=== PATIENT | female | born 1970 | race Two or more races ===

== ENCOUNTER 2024-05-25 10:56 | Emergency (ER) | payer MEDICAID, SELFPAY ==
[2024-05-25 11:10] VITALS: BP 149/90; PULSE 65; RESP 17; TEMP 37; O2SAT 98
[2024-05-25 11:11] VITALS: PULSE 76; RESP 18; O2SAT 98
--- NOTE | 2024-05-25 11:19 | EKG_ITS ---
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
--- NOTE | 2024-05-25 11:22 | XR_ITS ---
Examination: AP chest single view Technique one AP portable upright chest single view Exam date and time: 1242 hrs. Comparison June 22, 2023 Indications: Chest pain dizziness beginning 2 days ago Findings: Normal heart size Minor subsegmental atelectasis left lower lung zone. No pneumonia or pulmonary edema. Impression: No pneumonia or pulmonary edema.
--- NOTE | 2024-05-25 11:23 | EDNOTE_ITS ---
<Statement entered by Monserrat Chou MD - 05/25/24 17:35> As co-signing physician, I was present and available for consult prn. I concur with the plan and care as documented by the midlevel provider. ED Chest Pain RME/HPI General Chief Complaint: Chest Pain Stated Complaint: CHEST WALL PAIN Time Seen by Provider: 05/25/24 11:13 Arrival date/time: 05/25/24 10:56 RME / HPI RME / HPI narrative: 53-year-old female patient came in for evaluation regarding chest wall pain. Onset of symptoms since yesterday as worsening chest wall pain, described as dull ache, severity moderate. Patient denies any cough denies any fever denies any diaphoresis denies any other complaints. Patient told me that she ran out of her diabetes medication for 1 week. Denies any vomiting denies any other complaints no medication was taken prior to ER visit Related Data Previous Rx's ?Medication ?Instructions ?Recorded ibuprofen 600 mg tablet 600 mg PO Q8H PRN fever or p ain 05/28/19 #30 tabs albuterol sulfate 90 mcg/actuation 2 puff inhalation Q ID PRN 04/03/20 aerosol inhaler shortness of breath or wheez ing #18 grams azithromycin 250 mg tablet See Rx Instructions PO .COM PLEX #6 04/03/20 tabs codeine 10 mg-guaifenesin 100 mg/5 5 ml PO Q6H PRN cou gh #118 mL 04/13/20 mL oral liquid (Guaifenesin AC) naproxen 500 mg tablet (Naprosyn) 500 mg PO BID PRN pa in #20 tabs 09/28/20 cyclobenzaprine 10 mg tablet 10 mg PO BID #20 tabs 09/17 ibuprofen 600 mg tablet 600 mg PO TID PRN pain #30 t abs 12/03/21 cephalexin 500 mg capsule 500 mg PO QID #28 caps 08/17 albuterol sulfate 90 mcg/actuation 90 mcg inhalation Q 6H PRN 06/22/23 breath activated powder shortness of breath #1 ea inhaler,sensor (Proair Digihaler) amoxicillin 875 mg-potassium 1 tab PO BID #14 tabs clavulanate 125 mg tablet doxycycline monohydrate 100 mg 100 mg PO BID #14 caps 06/22/23 capsule ibuprofen 800 mg tablet 800 mg PO TID PRN pain #30 t abs 05/25/24 Allergies Allergy/AdvReac Type Severity Reaction Status Date / Time No Known Allergies Allergy Verified 06/22/23 14:59 Review of Systems Review of Systems Narrative Review of Systems: Review of system reviewed and within normal limits except mentioned in HPI ED Exam Narrative Physical exam: VITAL SIGNS: Reviewed. GENERAL APPEARANCE: Alert and interactive, follows commands, no acute distress, HEAD AND FACE: Non-traumatic. ENT: PERRL, pink conjunctivitis, eyelid no trauma, Mucous membrane moist. NECK: Supple, nontender, no nuchal rigidity. CHEST: Left chest wall tenderness, no crepitus, no paradoxical movement, no retractions. LUNGS: Clear, well ventilated, symmetric, no rales, no wheezing, no ronchi, no stridor, good breath sounds bilaterally. HEART: Regular rate, regular rhythm, no murmur, no gallops. ABDOMEN: Soft, positive bowel sounds, nondistended, no guarding, nontender, no rebound, no masses, RECTAL: Deferred. GENITAL: Deferred. NEUROLOGICAL: Gross motor function intact sensory function intact, Appropriate for age. MUSCULOSKELETAL: low back nontender, full range of motion. EXTREMITIES: Nontender, full range of motion. SKIN: Color pink, dry, no rash, no lacerations, no abrasions, no contusions. LYMPHATICS: Deferred. Course Quality Measures none Orders Category Date Time Status EKG (ED ONLY) *Do not use* NOW Care 05/25/24 11:19 Completed EKG (ED Only) Stat Exams 05/25/24 11:19 Draft XR chest 1V Stat Exams 05/25/24 11:22 Completed B-Type Natriuretic Peptide Stat Lab 05/25/24 11:52 Completed CBC Stat Lab 05/25/24 11:52 Completed Comprehensive Metabolic Panel Stat Lab 05/25/24 11:52 Completed Partial Thromboplastin Time Stat Lab 05/25/24 11:52 Completed Troponin I Stat Lab 05/25/24 11:52 Completed Urinalysis, C/S if Indicated Stat Lab 05/25/24 15:44 Completed Acetaminophen Tab [Tylenol ES Tab] Med 05/25/24 11:22 Discontinued 1,000 mg PO X1 ONE Vital Signs Vital signs: Vital Signs Temperature 98.6 F 05/25/24 11:10 Pulse Rate 65 05/25/24 11:10 Respiratory Rate 17 05/25/24 11:10 Blood Pressure 149/90 H 05/25/24 11:10 Pulse Oximetry (%) 98 05/25/24 11:10 Oxygen Delivery Method Room Air 05/25/24 11:10 Chest Pain [facility] Narrative [facility] Narrative:: 53-year-old female patient came in for evaluation regarding chest wall pain. Onset of symptoms since yesterday as worsening chest wall pain, described as dull ache, severity moderate. Patient denies any cough denies any fever denies any diaphoresis denies any other complaints. Patient told me that she ran out of her diabetes medication for 1 week. Denies any vomiting denies any other complaints no medication was taken prior to ER visit EKG showed sinus rhythm, ventricular to 70 bpm, no ST segment elevation depression noted. Laboratory workup including troponin came back normal. I personally reviewed and interpreted the x-ray of this patient. There is no acute abnormalities found, no infiltrates no pneumothorax no hemothorax normal chest x-ray. Review of other structures was without significant abnormal findings also. I additionally reviewed the radiologist report and agree with the interpretation. Her urinalysis is contaminated. Patient appears nontoxic and hemodynamically stable. Patient discharged home and instructed to follow-up with primary care provider in 24 to 48 hours. Instructed to return to the emergency department immediately if worsening of symptoms Patient data External records reviewed:: None Clinical information provided by:: none Social determinants that could affect healthcare access:: none Patient has the following chronic illnesses:: None How is presenting disease/condition affected by chronic disease/condition?: no chronic disease Evaluation data The following diagnostics were reviewed and interpreted by me:: lab results, radiology exam(s) and EKG tracing(s) Lab and/or radiology exams considered but not ordered:: None Interpretation Summary: See results in [facility] Medications / Prescriptions Medications or Prescriptions considered but not ordered:: None Medication administrations:: Medication Administration History Discontinued Medications Acetaminophen (Acetaminophen 500 Mg Tablet) 1,000 mg PO X1 ONE Stop: 05/25/24 11:23 Last Admin: 05/25/24 13:04 Dose: 1,000 mg Documented By: STEVE Tylenol Consultations Consultation(s) initiated? (list below): No Diagnosis Chest Pain Differential Diagnosis: pneumothorax, costochondritis and chest pain Most likely diagnosis given after review of the tests above:: Costochondritis Admission Indicated Admission indicated?: not indicated Admission Request Was there a request for admission?: No Disposition Plan Disposition Plan: Discharge Discharge Attestation Discharge Attestation: The patient and all family members were given an opportunity to ask questions and understood the discharge instructions. Discharge instructions specifically effects, indications for sooner follow up or return to the emergency department, and the expected course of current diagnosis. Patient condition: Stable Discharge Plan Plan Patient Disposition: HOME (Self Care) Disposition Comment: Stable Prescriptions/Referrals Prescriptions/Med Rec: New ibuprofen 800 mg tablet 800 mg PO TID PRN (Reason: pain) Qty: 30 0RF No Action ibuprofen 600 mg tablet 600 mg PO Q8H PRN (Reason: fever or pain) Qty: 30 0RF codeine-guaifenesin [Guaifenesin AC] 10-100 mg/5 mL liquid 5 ml PO Q6H PRN (Reason: cough) Qty: 118 0RF azithromycin 250 mg tablet See Rx Instructions .ROUTE .COMPLEX Qty: 6 0RF Rx Instructions: take 500 mg today (day 1), then 250 mg for 4 days (days 2-5) albuterol sulfate 90 mcg/actuation HFA aerosol inhaler 2 puff inhalation QID PRN (Reason: shortness of breath or wheezing) Qty: 18 0RF naproxen [Naprosyn] 500 mg tablet 500 mg PO BID PRN (Reason: pain) Qty: 20 0RF cyclobenzaprine 10 mg tablet 10 mg PO BID Qty: 20 0RF ibuprofen 600 mg tablet 600 mg PO TID PRN (Reason: pain) Qty: 30 0RF amoxicillin-pot clavulanate 875-125 mg tablet 1 tab PO BID Qty: 14 0RF doxycycline monohydrate 100 mg capsule 100 mg PO BID Qty: 14 0RF Proair Digihaler 90 mcg/actuation aero powdr breath act w/sensor 90 mcg inhalation Q6H PRN (Reason: shortness of breath) Qty: 1 0RF cephalexin 500 mg capsule 500 mg PO QID Qty: 28 0RF Referrals: Gerald Avila MD [Primary Care Provider] - In 1 week Problem List Clinical Impression: Costochondritis Patient/Caregiver Discharge Instructions Discharge Activity: activity as tolerated Education Materials: Costochondritis Additional Instructions: Thank you for the opportunity for serving you today. You are stable for discharged . You are advised to: Follow-up with your PCP in 1 to 2 days Return to ED for worsening of symptoms Increase oral fluids Take medication as prescribed Print Language: Romanian Stand Alone Forms: Dominique Award Info., Patient Portal Info Letter PA/BEAN DUMPER Supervising Physician SONI/ERICK Supervising Physician: MD Colten
[2024-05-25 12:08] LABS: Basophils % (Auto) 0 % (0-2.5); Eosinophils # (Auto) 0.2 Thou/mm3 (0.0-0.5); Eosinophils % (Auto) 3 % (0-10); Hematocrit 38.3 % (36.0-46.0); Hemoglobin 13.6 g/dL (12.0-16.0); Immature Granulocytes % (Auto) 0 % (0-0); Immature Granulocytes Auto 0.02 Thou/mm3 (0.00-0.00); Lymphocytes # (Auto) 2.4 Thou/mm3 (1.0-4.8); Lymphocytes % (Auto) 40 % (10-50); Mean Corpuscular HGB Conc 35.5 g/dl (31.0-37.0); Mean Corpuscular Hemoglobin 28.8 pg (25.0-35.0); Mean Corpuscular Volume 81 fL (80-100); Monocytes # (Auto) 0.3 Thou/mm3 (0.0-0.8); Monocytes % (Auto) 5 % (0-12); Neutrophils # (Auto) 3.1 Thou/mm3 (1.8-7.7); Neutrophils % (Auto) 52 % (37-80); Nucleated Red Blood Cell % 0 /100 WBC (0); Platelet Count 209 Thou/mm3 (140-440); RDW Standard Deviation 36.7 fL (36.4-46.3); Red Blood Count 4.73 Miln/mm3 (4.00-5.20); White Blood Count 5.9 Thou/mm3 (3.6-11.0)
[2024-05-25 12:26] LABS: Partial Thromboplastin Time 25.5 Seconds (22.0-36.0)
[2024-05-25 12:28] LABS: B-Type Natriuretic Peptide 43 pg/mL (0-100)
[2024-05-25 12:29] LABS: Alanine Aminotransferase 39 U/L (10-49); Albumin, Serum 4.2 gm/dL (3.5-5.0); Albumin/Globulin Ratio 1.2 (1.2-2.2); Alkaline Phosphatase 100 U/L (46-116); Anion Gap 9 (7-16); Aspartate Amino Transferase 41 U/L (0-34); BUN/Creatinine Ratio 10 Ratio (12-20); Bilirubin,Total 0.9 mg/dL (0.3-1.2); Blood Urea Nitrogen 6 mg/dL (9-23); Calcium 9.4 mg/dL (8.3-10.6); Calcium (Corrected) 9.4 mg/dL (8.5-10.1); Chloride 109 mMol/L (98-107); Creatinine (Component) 0.6 mg/dL (0.6-1.3); Globulin 3.4 gm/dL (2.3-3.5); Glucose 144 mg/dL (74-106); Osmolality,Calculated 283 (275-295); Potassium 3.5 mMol/L (3.4-5.1); Sodium 142 mMol/L (136-145); Total Protein 7.6 gm/dL (5.7-8.2); Troponin I < 0.002 ng/mL (0.0-0.045); eGFR > 60 See Note
[2024-05-25] MEDS: ACETAMINOPHEN 500 MG TABLET 1000 MG PO (13:04)
[2024-05-25 14:20] VITALS: BP 142/89; PULSE 72; RESP 18; TEMP 37; O2SAT 97
[2024-05-25 15:48] LABS: Collection Type, Urine Clean Catch
[2024-05-25 16:03] LABS: Bacteria,Urine Rare; Bilirubin,Urine Negative (Negative); Blood,Urine Negative (Negative); Clarity,Urine Turbid (Clear/Hazy); Color,Urine Yellow (Lt Yel-Yel); Culture Indicated,Urine Contaminated; Glucose, Urine Trace (Negative); Ketones,Urine Negative (Negative); Leukocyte Esterase,Urine Positive (Negative); Nitrite,Urine Negative (Negative); Protein,Urine 1+ (Neg - Trace); RBC,Urine 3 /hpf (0-3); Specific Gravity,Urine 1.035 (1.001-1.035); Squamous Epithelial Cell,Urine 11 /hpf (0-5); Transitional Epi Cells,Urine 2 /hpf (0-5); WBC,Urine 56 /hpf (0-5)
== END 2024-05-25 17:30 | disposition home or self-care (01) ==
PROVIDERS: Nurse Practitioner Family; Emergency Provider Emergency Medicine; PCP Family Medicine
DX: M94.0 Chondrocostal junction syndrome [Tietze] (principal); E11.9 Type 2 diabetes mellitus without complications
CPT/HCPCS: 36415; 71045; 80053; 81001; 83880; 84484; 85025; 85730; 93005; 99283; A9270

== ENCOUNTER 2024-12-30 00:23 | Emergency (ER) | payer MEDICAID, SELFPAY ==
--- NOTE | 2024-12-30 00:39 | PD.EDCHEST ---
ED Chest Pain RME/HPI General Chief Complaint: Chest Pain Stated Complaint: CHEST PAIN Time Seen by Provider: 12/30/24 00:59 Arrival date/time: 12/30/24 00:23 RME / HPI RME / HPI narrative: See MDM for Dr. Haley's HPI documentation. Related Data Previous Rx's ?Medication ?Instructions ?Recorded ibuprofen 600 mg tablet 600 mg PO Q8H PRN fever or pain 05/28/19 #30 tabs albuterol sulfate 90 mcg/actuation 2 puff inhalation QID PRN 04/03/20 aerosol inhaler shortness of breath or wheezing #18 grams azithromycin 250 mg tablet See Rx Instructions PO .COMPLEX #6 04/03/20 tabs codeine 10 mg-guaifenesin 100 mg/5 5 ml PO Q6H PRN cough #118 mL 04/13/20 mL oral liquid (Guaifenesin AC) naproxen 500 mg tablet (Naprosyn) 500 mg PO BID PRN pain #20 tabs 09/28/20 cyclobenzaprine 10 mg tablet 10 mg PO BID #20 tabs 12/03/21 ibuprofen 600 mg tablet 600 mg PO TID PRN pain #30 tabs 12/03/21 cephalexin 500 mg capsule 500 mg PO QID #28 caps 08/17/22 albuterol sulfate 90 mcg/actuation 90 mcg inhalation Q6H PRN 06/22/23 breath activated powder shortness of breath #1 ea inhaler,sensor (Proair Digihaler) amoxicillin 875 mg-potassium 1 tab PO BID #14 tabs 06/22/23 clavulanate 125 mg tablet doxycycline monohydrate 100 mg 100 mg PO BID #14 caps 06/22/23 capsule ibuprofen 800 mg tablet 800 mg PO TID PRN pain #30 tabs 05/25/24 acetaminophen 300 mg-codeine 30 mg 2 tab PO Q8H PRN pain #20 tabs 12/30/24 tablet ketorolac 10 mg tablet 10 mg PO Q8H PRN pain 5 days #10 12/30/24 tabs ondansetron 4 mg disintegrating 4 mg PO TID PRN nausea and 12/30/24 tablet vomiting 30 days #10 tabs sitagliptin phosphate 50 1 tab PO DAILY #30 tabs 12/30/24 mg-metformin 1,000 mg tablet (Janumet) Allergies Allergy/AdvReac Type Severity Reaction Status Date / Time No Known Allergies Allergy Verified 06/22/23 14:59 Review of Systems Review of Systems Systems Reviewed: All systems reviewed, normal except as documented Past Medical History Past Medical History NEUROLOGIC: Negative Seizures CARDIAC: Positive Hypertension; Negative Cardiac Disorders or Congestive Heart Failure RESPIRATORY: Negative Chronic Obstructive Pulmonary Disease (COPD) or Asthma GENITOURINARY: Negative Renal Disease MUSCULOSKELETAL: Positive Arthritis ENDOCRINE: Negative Diabetes Mellitus Type 1 or Diabetes Mellitus Type 2 HEMATOLOGIC: Negative Sickle Cell Disease OTHER HISTORY: Negative Blood Transfusions, Blood Transfusion Reaction or Anesthesia Reactions Surgical History SURGICAL: Positive Abdominal Surgery and Section Social History SMOKING STATUS: Never smoker SUBSTANCE USE: does not use ED Exam Narrative Physical exam: See MDM for Dr. Haley's physical exam documentation. Course Course Course Narrative: CXR is ordered for determining the etiology of chest pain. Quality Measures none Orders Category Date Time Status Bedside COVID-19 Antigen Test NOW Care 12/30/24 00:59 Completed EKG (ED ONLY) *Do not use* NOW Care 12/30/24 00:50 Completed Saline [Insert IV] NOW Care 12/30/24 00:59 Completed Straight [In and Out Catheter] X1 Care 12/30/24 00:[address] cervical spine wo con Stat Exams 12/30/24 01:[address] chest abdomen pelvis wo Stat Exams 12/30/24 01:[address] head/brain wo con Stat Exams 12/30/24 01:00 Taken EKG (ED Only) Stat Exams 12/30/24 00:50 Ordered US gall bladder Stat Exams 12/30/24 01:01 Taken XR chest 1V portable Stat Exams 12/30/24 01:00 Taken Amylase Stat Lab 12/30/24 02:10 Completed BNP [B-Type Natriuretic Peptide] Stat Lab 12/30/24 02:10 Completed Beta Hydroxybutyrate Stat Lab 12/30/24 02:10 Completed Bilirubin,Direct Stat Lab 12/30/24 02:10 Completed CBC Stat Lab 12/30/24 02:10 Completed CMP [Comprehensive Metabolic Panel] Stat Lab 12/30/24 02:10 Completed CRP [C-Reactive Protein] Stat Lab 12/30/24 02:10 Completed ESR [Sed Rate (ESR)] Stat Lab 12/30/24 02:10 Completed HCG Qualitative,Urine Stat Lab 12/30/24 03:08 Completed Hemoglobin A1C [Glycohemoglobin w (eAG)] Stat Lab 12/30/24 02:10 Completed Influenza A & B Rapid Panel Stat Lab 12/30/24 01:37 Completed Lipase Stat Lab 12/30/24 02:10 Completed Magnesium Stat Lab 12/30/24 02:10 Completed Procalcitonin Stat Lab 12/30/24 02:10 Completed TSH [Thyroid Stimulating Hormone] Stat Lab 12/30/24 02:10 Completed Troponin I Stat Lab 12/30/24 02:10 Completed UA, C/S IF [Urinalysis, C/S if Indicated] Stat Lab 12/30/24 01:15 Completed VBG [Venous Blood Gas] Stat Lab 12/30/24 02:10 Completed Ketorolac Inj [Toradol Inj] Med 12/30/24 02:32 Discontinued 30 mg IVP X1 ONE Morphine* Inj Med 12/30/24 00:59 Discontinued 2 mg IV X1 ONE Morphine* Inj Med 12/30/24 02:32 Discontinued 4 mg IV X1 ONE Ondansetron Inj [Zofran Inj] Med 12/30/24 00:59 Discontinued 4 mg IVP X1 ONE Sodium Chloride 0.9% 1000 ml [Ns] 1,000 ml Med 12/30/24 00:59 Discontinued IV 999 mls/hr Vital Signs Vital signs: Vital Signs Temperature 98.6 F 12/30/24 00:45 Pulse Rate 89 12/30/24 00:45 Respiratory Rate 16 12/30/24 00:45 Blood Pressure 159/92 H 12/30/24 00:45 Pulse Oximetry (%) 96 12/30/24 00:45 Oxygen Delivery Method Room Air 12/30/24 00:45 Chest Pain MDM Narrative MDM Narrative:: This section includes all my notes and documentations, including HPI, PE, and ED course. Ga Haley MD HPI: 54-year-old female here with severe left-sided chest/abdominal pain. Has trouble pinpointing the onset. Has trouble describing the quality and quantity of the pain. Has trouble describing exacerbating and relieving factors. No shortness of breath. No fever or chills. No other complaints. ROS: All negative except as documented in HPI. Physical Exam: General: Alert and oriented. In severe pain. Eyes: Conjunctivae and lids clear. ENT: No nasal congestion. Neck: Supple. Heart: RRR. Lungs: No respiratory distress. Good air movement. No rhonchi, wheezing, rales. Chest: Severe tenderness with palpation of the anterior chest, left of the sternum. Abdomen: Soft and nontender. Normal bowel sounds. No distension. No rebound or guarding. Back: No CVA tenderness. Skin: Warm and dry. Neuro: Alert and oriented X 3. I reviewed all diagnostic test results. My interpretation of the EKG is sinus rhythm with no ST-T changes. My interpretation of the chest x-ray is NAD. My review of the gallbladder US report is NAD. My review of the CT head report is unremarkable. My review of the CT cervical spine report is unremarkable. My review of the CT chest abdomen pelvis report is unremarkable. Blood/urine tests unremarkable except Glu 264. COVID/influenza negative. At this point, diagnoses include: Chest wall pain Poorly controlled diabetes mellitus Treatment here included: IV fluid Morphine 2 mg IV Zofran 4 mg IV Toradol 30 mg IV Morphine 4 mg IV Significant improvement noted. Recommended more outpatient care. Based on my best medical judgment, made decision no further evaluation or treatment indicated at this time. Patient understands and agrees to the discharge instructions customized and printed, see below. Discharge instructions from Dr. Haley: 1. After extensive evaluation, there is no life-threatening condition. Such as heart attack or pulmonary embolism (blood clots in your lungs) or pneumothorax (collapsed lung). 2. Your pain is originating from the chest wall and not from an internal organ. The chest wall has many joints and muscles between the ribs, so sprains and strains are common. 3. Apply ice or heat if helpful. Toradol and Tylenol with codeine for pain. Zofran for nausea/vomiting. 4. Take Janumet as prescribed for diabetes. To prevent serious and potentially fatal complications. 5. See a private doctor on 01/01/2025 for recheck. Ask to review all test results and official radiology reports, to make sure you receive all necessary follow-ups and monitoring. To make sure there is no serious underlying heart condition, ask to help you get more tests for your heart that cannot be done here in the ER. Such as Holter Monitor (cardiac monitoring at home from a day to even a month), heart stress test (on treadmill or with medication), echocardiogram (imaging of your heart structures), heart catherization (checking for blockages in your heart arteries), and a referral to see a Mental Health Aides Teacher. To make sure there is no serious intra-abdominal condition, ask for help with more investigation not available here in the ER. Such as EGD or scoping the stomach, colonoscopy or scoping the colon, and referral to see director of audiology. Ask for help with good management of your diabetes. 6. Seek immediate medical care with worsening or with any concerns. Ga Haley MD Patient data External records reviewed:: [facility] previous records (Per chart review, patient was seen here on 05/25/24 for costochondritis.) Clinical information provided by:: patient Social determinants that could affect healthcare access:: none Patient has the following chronic illnesses:: DM, HTN How is presenting disease/condition affected by chronic disease/condition?: uneffected by Evaluation data The following diagnostics were reviewed and interpreted by me:: lab results, radiology exam(s) and EKG tracing(s) (My interpretation of the EKG: NSR (90 bpm) with no ST-T changes. Ga Haley MD) Lab and/or radiology exams considered but not ordered:: none Interpretation Summary: I reviewed all diagnostic test results. My interpretation of the EKG is sinus rhythm with no ST-T changes. My interpretation of the chest x-ray is NAD. My review of the gallbladder US report is NAD. My review of the CT head report is unremarkable. My review of the CT cervical spine report is unremarkable. My review of the CT chest abdomen pelvis report is unremarkable. Blood/urine tests unremarkable except Glu 264. COVID/influenza negative. Medications / Prescriptions Medications or Prescriptions considered but not ordered:: none Medication administrations:: Medication Administration History Discontinued Medications Sodium Chloride (Ns) 1,000 mls @ 999 mls/hr IV .Q1H1M ONE Stop: 12/30/24 01:59 Last Infusion: 12/30/24 03:35 Dose: Infused Documented By: Admin: 12/30/24 02:12 Dose: 999 mls/hr Documented By: HARMAN Ketorolac Tromethamine (Ketorolac Inj 30 Mg/Ml Vial) 30 mg IVP X1 ONE Stop: 12/30/24 02:33 Last Admin: 12/30/24 03:35 Dose: 30 mg Documented By: AM Morphine Sulfate (Morphine Sulf Inj 4 Mg/Ml Vial) 2 mg IV X1 ONE Stop: 12/30/24 01:00 Last Admin: 12/30/24 02:13 Dose: 2 mg Documented By: HARMAN Morphine Sulfate (Morphine Sulf Inj 4 Mg/Ml Vial) 4 mg IV X1 ONE Stop: 12/30/24 02:33 Last Admin: 12/30/24 02:52 Dose: 4 mg Documented By: HARMAN Ondansetron HCl (Ondansetron Inj 2 Mg/Ml Inj 2 Ml) 4 mg IVP X1 ONE; Protocol Stop: 12/30/24 01:00 Last Admin: 12/30/24 02:13 Dose: 4 mg Documented By: HARMAN Treatment here included: IV fluid Morphine 2 mg IV Zofran 4 mg IV Toradol 30 mg IV Morphine 4 mg IV Consultations Consultation(s) initiated? (list below): No Diagnosis Chest Pain Differential Diagnosis: fracture of rib, pneumothorax, stable angina, unstable angina pectoris, atypical chest pain, st elevation myocardial infarction, costochondritis and biliary colic Most likely diagnosis given after review of the tests above:: Chest wall pain Poorly controlled diabetes mellitus Admission Indicated Admission indicated?: not indicated Explain why admission is indicated or not indicated:: With significant improvement and no condition needing emergent intervention, there was no indication for admission. Admission Request Was there a request for admission?: No Disposition Plan Disposition Plan: Discharge Discharge Attestation Discharge Attestation: The patient and all family members were given an opportunity to ask questions and understood the discharge instructions. Discharge instructions specifically effects, indications for sooner follow up or return to the emergency department, and the expected course of current diagnosis. Patient condition: Stable Discharge Plan Plan Patient Disposition: HOME (Self Care) Prescriptions/Referrals Prescriptions/Med Rec: New acetaminophen-codeine 300-30 mg tablet 2 tab PO Q8H MDD 6 PRN (Reason: pain) Qty: 20 0RF ketorolac 10 mg tablet 10 mg PO Q8H PRN (Reason: pain) 5 Days Qty: 10 0RF ondansetron 4 mg tablet,disintegrating 4 mg PO TID PRN (Reason: nausea and vomiting) 30 Days Qty: 10 0RF Janumet 50-1,000 mg tablet 1 tab PO DAILY Qty: 30 1RF No Action ibuprofen 600 mg tablet 600 mg PO Q8H PRN (Reason: fever or pain) Qty: 30 0RF codeine-guaifenesin [Guaifenesin AC] 10-100 mg/5 mL liquid 5 ml PO Q6H PRN (Reason: cough) Qty: 118 0RF azithromycin 250 mg tablet See Rx Instructions .ROUTE .COMPLEX Qty: 6 0RF Rx Instructions: take 500 mg today (day 1), then 250 mg for 4 days (days 2-5) albuterol sulfate 90 mcg/actuation HFA aerosol inhaler 2 puff inhalation QID PRN (Reason: shortness of breath or wheezing) Qty: 18 0RF naproxen [Naprosyn] 500 mg tablet 500 mg PO BID PRN (Reason: pain) Qty: 20 0RF cyclobenzaprine 10 mg tablet 10 mg PO BID Qty: 20 0RF ibuprofen 600 mg tablet 600 mg PO TID PRN (Reason: pain) Qty: 30 0RF amoxicillin-pot clavulanate 875-125 mg tablet 1 tab PO BID Qty: 14 0RF doxycycline monohydrate 100 mg capsule 100 mg PO BID Qty: 14 0RF Proair Digihaler 90 mcg/actuation aero powdr breath act w/sensor 90 mcg inhalation Q6H PRN (Reason: shortness of breath) Qty: 1 0RF cephalexin 500 mg capsule 500 mg PO QID Qty: 28 0RF ibuprofen 800 mg tablet 800 mg PO TID PRN (Reason: pain) Qty: 30 0RF Referrals: Gerald Avila MD [Primary Care Provider, Family Practice] - In 1 week Problem List Clinical Impression: Chest wall pain, Poorly controlled diabetes mellitus Patient/Caregiver Discharge Instructions Discharge Activity: activity as tolerated Education Materials: ED Diabetes- Overview, ED Chest Wall Strain (Child) Additional Instructions: Discharge instructions from Dr. Haley: 1. After extensive evaluation, there is no life-threatening condition.? Such as heart attack or pulmonary embolism (blood clots in your lungs) or pneumothorax (collapsed lung). 2. Your pain is originating from the chest wall and not from an internal organ.? The chest wall has many joints and muscles between the ribs, so sprains and strains are common.?? 3. Apply ice or heat if helpful.? Toradol and Tylenol with codeine for pain. Zofran for nausea/vomiting. 4. Take Janumet as prescribed for diabetes. To prevent serious and potentially fatal complications. 5. See a private doctor on 01/01/2025 for recheck. Ask to review all test results and official radiology reports, to make sure you receive all necessary follow-ups and monitoring. To make sure there is no serious underlying heart condition, ask to help you get more tests for your heart that cannot be done here in the ER.? Such as Holter Monitor (cardiac monitoring at home from a day to even a month), heart stress test (on treadmill or with medication), echocardiogram (imaging of your heart structures), heart catherization (checking for blockages in your heart arteries), and a referral to see a Mental Health Aides Teacher.? To make sure there is no serious intra-abdominal condition, ask for help with more investigation not available here in the ER. Such as EGD or scoping the stomach, colonoscopy or scoping the colon, and referral to see director of audiology. Ask for help with good management of your diabetes. 6. Seek immediate medical care with worsening or with any concerns.?? Instrucciones de bruce del Dr. Haley: 1. Tras wilmer evaluaci?n exhaustiva, no se detecta ninguna afecci?n que ponga en peligro chavira vanessa, margy un infarto, wilmer embolia pulmonar (co?gulos de paramjit en los pulmones) o un neumot?rax (colapso pulmonar). 2. El dolor se origina en la pared tor?cica y no en un ?rgano interno. La pared tor?cica tiene muchas articulaciones y m?sculos entre las costillas, por lo que los esguinces y las distensiones son frecuentes. 3. Aplique hielo o calor si le resulta ?til. Toradol y Tylenol con code?na para el dolor. Zofran para las n?useas y los v?mitos. 4. [place] Janumet seg?n lo prescrito para la diabetes. Para prevenir complicaciones graves y potencialmente mortales. 5. Consulte a un m?dico particular el 07/07/2024 para wilmer revisi?n. Solicite revisar todos los resultados de las pruebas y los informes radiol?gicos oficiales para asegurarse de recibir el seguimiento y la monitorizaci?n necesarios. Para descartar cualquier afecci?n card?bina subyacente grave, solicite ayuda para realizarse m?s pruebas card?acas que no se pueden realizar en urgencias. Por ejemplo, un monitor Holter (monitorizaci?n card?bina en casa leonel un d?a o incluso un mes), wilmer prueba de esfuerzo card?aco (en cinta rodante o con medicaci?n), un ecocardiograma (im?genes de las estructuras card?acas), un cateterismo card?aco (para detectar obstrucciones en las arterias coronarias) y wilmer derivaci?n a un cardi?logo. Para descartar cualquier afecci?n intraabdominal grave, solicite ayuda para realizar m?s pruebas diagn?sticas que no est?n disponibles en urgencias. Por ejemplo, wilmer endoscopia digestiva bruce (KASSY) o wilmer colonoscopia (EC) y wilmer derivaci?n a un gastroenter?logo. Solicite ayuda para controlar adecuadamente chavira diabetes. 6. Busque atenci?n m?dica inmediata si empeora o si tiene alguna inquietud. Print Language: Tamazight Stand Alone Forms: Dominique Award Info., Patient Portal Info Letter
[2024-12-30 00:45] VITALS: BP 159/92; PULSE 89; RESP 16; TEMP 37; O2SAT 96
--- NOTE | 2024-12-30 00:50 | EKG_ITS ---
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
--- NOTE | 2024-12-30 01:00 | XR_ITS ---
Examination: CT brain head without contrast. 2-D sagittal coronal reconstructions Date and time of exam: December 30, 2024, 0052 hours INDICATIONS: Onset altered mental status today CTDI: vol (mGy): 50.20 DLP: (mGycm): 1003 Technique: Multiple CT axial sections of the brain have been obtained, 5 mm slice thickness. Contrast has not been administered. 2-D sagittal, coronal reconstructions have been obtained Low dose protocols were performed. One or more of the following dose reduction techniques were used; automated exposure control, adjustment of the mA and/or KV according to patient size, use of iterative reconstruction technique. Findings: No significant ventricular enlargement. Intra-axial or extra-axial hemorrhage density is not seen. No mass effect or midline shift Basal cisterns are not remarkable. Fourth ventricle is midline. Cranial vault intact. Impression: Negative for acute hemorrhage, mass effect or midline shift Advise clinical correlation and follow-up accordingly
--- NOTE | 2024-12-30 01:00 | XR_ITS ---
EXAMINATION: PA chest single view Technique when upright PA chest single view Date and time: December 30, 2024, 0101 hours, comparison May 25, 2024 INDICATIONS: Shortness of breath today. FINDINGS: Normal heart size. Lungs are clear. The osseous structures are intact. IMPRESSION: No active disease
--- NOTE | 2024-12-30 01:00 | XR_ITS ---
Examination: CT cervical spine without contrast 2-D sagittal reconstructions 2-D coronal reconstructions 3-D reconstructions. Exam date and time: December 30, 2024, 0122 hours INDICATIONS: Injury to the neck today, neck pain CTDI:vol (mGy) 17.96 DLP: (mGycm) 407 Technique: Multiple 2 mm axial sections of the cervical spine have been obtained. The coronal and sagittal reconstructions have been obtained. 3-D reconstructions have been obtained. Low dose protocols were performed. One or more of the following dose reduction techniques were used; automated exposure control, adjustment of the mA and/or KV according to patient size, use of iterative reconstruction technique. Findings: Axial sections demonstrate intact base of the skull. C1 exhibit satisfactory relationship to the odontoid. No acute cervical vertebral body fracture seen. Alignment posterior spinous processes satisfactory. Impression: No acute cervical fracture.
--- NOTE | 2024-12-30 01:01 | XR_ITS ---
Examination: Abdomen sonogram, Limited Date and time of exam: December 30, 2024, 0140 hours INDICATIONS: Upper abdominal pain epigastric pain beginning 2 days ago. Technique: Real-time dhillon scale transabdominal sonographic images of the upper abdomen obtained. Findings: Absent gallbladder Normal common bile duct 0.2 cm Pancreatic head 2.7 cm Liver 18.5 cm fatty infiltration irregular contour no focal liver lesions Normal hepatopetal portal venous flow Patent IVC IMPRESSION: Absent gallbladder Normal common bile duct. Moderate hepatomegaly suspect primary pelvis cellular disease
--- NOTE | 2024-12-30 01:01 | XR_ITS ---
Examination: CT chest, without intravenous contrast. CT abdomen, without intravenous contrast. CT pelvis, without intravenous contrast. 2-D sagittal and coronal reconstructions. 3-D reconstructions. Date and time of exam: December 30, 2024, 0126 hours COMPARISON: August 16, 2022 INDICATIONS: Left chest pain abdomen pain onset today. CTDI vol (mgy) 16.11 DLP (MGycm) 1218 Technique: Multiple CT images, 3.0 mm slice thickness, obtained chest, abdomen, pelvis, with the high-resolution 64 slice scanner.. Sagittal and coronal 2-D reconstructions are obtained. 3-D reconstructions Low dose protocols were performed. One or more of the following dose reduction techniques were used; automated exposure control, adjustment of the mA and/or KV according to patient size, use of iterative reconstruction technique. Findings: No thoracic aortic aneurysm dilatation. Pulmonary artery segments are not enlarged. No paratracheal tracheobronchial or bronchopulmonary adenopathy. Suspicious for 4 mm pulmonary nodule posterior right lung image 152 No pneumonia or pulmonary edema No visualized liver or splenic lesion Absent gallbladder No common bile duct stones No pancreatic or adrenal mass No renal or ureteral calculi, no hydronephrosis Aorta normal size Absent appendix No bowel obstruction or diverticulitis No pelvic mass Contracted urinary bladder with urinary bladder wall thickening IMPRESSION: No mediastinal lymphadenopathy. Recommend 6-month follow-up CT chest without contrast to document stability of 4 mm pulm nodule posterior right lung No pneumonia or pulmonary edema No acute process in the abdomen or pelvis Mild urinary bladder wall thickening, differential would include cystitis Moderate degenerative disc disease L5-S1
[2024-12-30 01:21] LABS: Collection Type, Urine Clean Catch; Squamous Epithelial Cell,Urine 0 /hpf (0-5)
[2024-12-30 01:27] LABS: Bilirubin,Urine Negative (Negative); Blood,Urine Negative (Negative); Clarity,Urine Clear (Clear/Hazy); Color,Urine Colorless (Lt Yel-Yel); Culture Indicated,Urine Not Indicated; Glucose, Urine 4+ (Negative); Ketones,Urine Negative (Negative); Leukocyte Esterase,Urine Negative (Negative); Nitrite,Urine Negative (Negative); PH,Urine 7.0 (5.0-7.0); Protein,Urine Negative (Neg - Trace); RBC,Urine < 1 /hpf (0-3); Specific Gravity,Urine 1.007 (1.001-1.035); Urobilinogen,Urine Negative mg/dL (0.0-1.0); WBC,Urine 1 /hpf (0-5)
--- NOTE | 2024-12-30 01:32 | PRELIM_ITS ---
CT scan of the head without intravenous contrast (axial sections with sagittal and coronal reformats). December 30, 2024 0121 hours Clinical History: AMS Comparison: None Findings: There is no intracranial hemorrhage, extra-axial collection, mass, mass-effect or midline shift. There is good dhillon-white differentiation. There is no CT evidence of acute large vascular territorial infarct. Ventricles are not enlarged or effaced. Visualized paranasal sinuses and tympanomastoid cavities are clear. The bony calvarium is intact. Impression: No intracranial hemorrhage, mass-effect or midline shift. No CT evidence of acute large vascular territorial infarct. Report Electronically Signed By: Quincy Martinez 12/30/2024 1:31:40 AM [EST]
--- NOTE | 2024-12-30 01:33 | PRELIM_ITS ---
CT scan of the cervical spine without intravenous contrast (axial sections with sagittal and coronal reformats). December 30, 2024 0123 hours Clinical History: Pain with obvious injury Comparison: None Findings: There is no fracture, traumatic subluxation or other acute osseous abnormality of the cervical spine. There is straightening of the cervical spine curvature with loss of normal cervical lordosis. There is no prevertebral soft tissue swelling. Impression: No acute osseous abnormality of the cervical spine. Straightening of the cervical spine may indicate muscle spasm. Report Electronically Signed By: Quincy Martinez 12/30/2024 1:33:13 AM [EST]
[2024-12-30 02:08] VITALS: BMI 42.7
[2024-12-30] MEDS: SODIUM CHLORIDE 0.9% 1000 ML 1,000 ML 999 ML IV (02:12)
[2024-12-30] MEDS: MORPHINE SULF INJ 4 MG/ML VIAL 2 MG IV (02:13)
[2024-12-30] MEDS: ONDANSETRON INJ 2 MG/ML INJ 2 ML 4 MG IVP (02:13)
[2024-12-30 02:22] LABS: Base Excess, Venous 0 (-3-3); O2 Saturation, Venous 87 % (96-97); PCO2, Venous 42 mmHg (36-56); PO2, Venous 51 mmHg (15-58); pH, Venous 7.39 (7.33-7.66)
[2024-12-30 02:23] LABS: Basophils # (Auto) 0.0 Thou/mm3 (0.0-0.2); Basophils % (Auto) 0 % (0-2.5); Eosinophils # (Auto) 0.1 Thou/mm3 (0.0-0.5); Eosinophils % (Auto) 2 % (0-10); Hematocrit 38.0 % (36.0-46.0); Hemoglobin 12.9 g/dL (12.0-16.0); Immature Granulocytes Auto 0.03 Thou/mm3 (0.00-0.00); Lymphocytes # (Auto) 1.4 Thou/mm3 (1.0-4.8); Lymphocytes % (Auto) 19 % (10-50); Mean Corpuscular HGB Conc 33.9 g/dl (31.0-37.0); Mean Corpuscular Hemoglobin 29.2 pg (25.0-35.0); Mean Corpuscular Volume 86 fL (80-100); Monocytes # (Auto) 0.3 Thou/mm3 (0.0-0.8); Monocytes % (Auto) 4 % (0-12); Neutrophils # (Auto) 5.4 Thou/mm3 (1.8-7.7); Neutrophils % (Auto) 74 % (37-80); Nucleated Red Blood Cell # 0.00 Thou/mm3 (0.00-0.00); Nucleated Red Blood Cell % 0 /100 WBC (0); Platelet Count 206 Thou/mm3 (140-440); RDW Standard Deviation 38.7 fL (36.4-46.3); Red Blood Count 4.42 Miln/mm3 (4.00-5.20); White Blood Count 7.3 Thou/mm3 (3.6-11.0)
[2024-12-30 02:24] LABS: Beta Hydroxybutyrate 0.0 mmol/L (<0.6)
--- NOTE | 2024-12-30 02:24 | PRELIM_ITS ---
CT scan of the chest, abdomen, and pelvis without intravenous contrast (axial sections with sagittal and coronal reformats) December 30, 2024 01:25 hours Clinical History: Left chest pain and abdominal pain Comparison: No prior study is available for comparison mentioned Findings: There is dependent subsegmental atelectasis in the lungs. There is no pleural effusion or pneumothorax. The thoracic aorta demonstrates atheromatous calcification without evidence of aneurysm. Coronary artery calcification is noted. There are a few prominent mediastinal lymph nodes. There is mild card iomegaly. There is no pericardial effusion. Fatty infiltration of the liver is noted. The gallbladder is surgically absent. The spleen, pancreas, adrenals, and kidneys are unremarkable on this noncontrast study. No evidence of bowel obstruction. The appendix is not visualized and may be surgically absent. The urinary bladder is incompletely distended with apparent wall thickening. The uterus is unremarkable. Tubal ligation clips are noted in the pelvis. There is no free fluid or free air. There are pelvic phleboliths. There is degenerative change in the spine. Impression: No pericardial or pleural effusion. No pneumothorax. Possible cystitis. Recommend clinical and laboratory correlation. Other findings as described above. Report Electronically Signed By: Quincy Martinez 12/30/2024 2:23:38 AM [EST]
[2024-12-30 02:34] LABS: Glucose Estimated Average 180 mg/dL (80-131); Hemoglobin A1C 7.9 % Hgb (4.8-6.0)
[2024-12-30 02:36] LABS: Sed Rate (ESR) 43 mm/hr (0-30)
[2024-12-30 02:41] LABS: Influenza A Ag Negative; Influenza B Ag Negative
[2024-12-30 02:42] LABS: B-Type Natriuretic Peptide 21 pg/mL (0-100)
[2024-12-30 02:48] LABS: Alanine Aminotransferase 26 U/L (10-49); Albumin, Serum 4.4 gm/dL (3.5-5.0); Albumin/Globulin Ratio 1.6 (1.2-2.2); Alkaline Phosphatase 118 U/L (46-116); Amylase 77 U/L (30-118); Anion Gap 9 (7-16); Aspartate Amino Transferase 21 U/L (0-34); BUN/Creatinine Ratio 15 Ratio (12-20); Bilirubin,Direct 0.1 mg/dL (0.0-0.3); Bilirubin,Total 0.5 mg/dL (0.3-1.2); Blood Urea Nitrogen 12 mg/dL (9-23); C-Reactive Protein 1.0 mg/dL (0.0-0.9); Calcium 9.3 mg/dL (8.3-10.6); Calcium (Corrected) 9.3 mg/dL (8.5-10.1); Carbon Dioxide 25.3 mMol/L (20.0-31.0); Chloride 105 mMol/L (98-107); Creatinine (Component) 0.8 mg/dL (0.6-1.3); Estimated Creatinine Clearance 85.1 mL/min (>60); Globulin 2.8 gm/dL (2.3-3.5); Glucose 264 mg/dL (74-106); Lipase 43 U/L (12-53); Magnesium 1.8 mg/dL (1.6-2.6); Osmolality,Calculated 286 (275-295); Potassium 4.1 mMol/L (3.4-5.1); Procalcitonin 0.05 ng/ml (0.0-0.49); Sodium 139 mMol/L (136-145); Thyroid Stimulating Hormone 0.64 uIU/mL (0.55-4.78); Total Protein 7.2 gm/dL (5.7-8.2); Troponin I < 0.002 ng/mL (0.0-0.045); eGFR > 60 See Note
[2024-12-30] MEDS: MORPHINE SULF INJ 4 MG/ML VIAL IV (02:52)
[2024-12-30 03:16] LABS: HCG Qualitative,Urine Negative
[2024-12-30] MEDS: KETOROLAC INJ 30 MG/ML VIAL IVP (03:35)
[2024-12-30 03:56] VITALS: BP 143/83; PULSE 79; RESP 16; TEMP 37.1; O2SAT 95
== END 2024-12-30 04:08 | disposition home or self-care (01) ==
PROVIDERS: Emergency Provider Emergency Medicine; PCP Family Medicine
DX: R07.89 Other chest pain (principal); E11.65 Type 2 diabetes mellitus with hyperglycemia
CPT/HCPCS: 36415; 70450; 71045; 71250; 72125; 74176; 76705; 80053; 81001; 81025; 82010; 82150; 82248; 82803; 83036; 83690; 83735; 83880; 84145; 84443; 84484; 85025; 85652; 86140; 87502; 87635; 93005; 96361; 96374; 96375; 99284; J1885; J2270; J2405; J7030

== ENCOUNTER 2025-02-07 07:29 | Emergency (ER) | payer MEDICAID, SELFPAY ==
--- NOTE | 2025-02-07 07:36 | XR_ITS ---
Examination: CT abdomen and pelvis without contrast. Coronal 3-D reconstructions. Sagittal 2-D reconstructions. Date and time of exam: 02/07/2025 at 9:11 a.m. CTDI: vol (mGy): 11 DLP: (mGycm): 630 Comparison study on 12/30/2024 CLINICAL INDICATION: Generalized abdominal pain with nausea and vomiting for 1 day Technique: Axial images of the abdomen have been obtained, 3 mm slice thickness Intravenous contrast material has not been administered. Low dose protocols were performed. One or more of the following dose reduction techniques were used; automated exposure control, adjustment of the mA and/or KV according to patient size, use of iterative reconstruction technique. Findings: In the mid dorsal and lumbosacral spine, there is a vertebral hemangioma measuring 1.9 cm in diameter in the body of L1. This is an insignificant benign bone tumor. Other than moderate degenerative disc disease at L5-S1 the radiographs of the lumbosacral spine are normal, there is minimal DJD in the right hip joint, otherwise the bones appear all right In the lower lungs there is significant cardiomegaly and there is mild coronary artery calcification noted on the left there is a 4 mm diameter noncalcified nodule along the posterior pleural margin of the right lower lobe, this is identical to the area seen on the prior CT of 12/30/2024 There is moderately significant generalized enlargement of the liver with mild but definite decreased density in the liver consistent with fatty infiltration. No focal liver lesions are seen. Surgical clips are seen in the gallbladder fossa, from cholecystectomy. Surgical clips are also seen in the region of the appendix and there is surgical clips indicating bilateral tubal ligation in the pelvis. The appearance of the pancreas and adrenal glands is normal along with the spleen. Both kidneys appear normal, no hydronephrosis or calculi are seen. There is a retroaortic left renal vein, a variation of normal anatomy the retroperitoneum otherwise has a normal CT appearance. All loops of small bowel appear normal. The loops of colon likewise all appear normal with a few possible small diverticuli in the sigmoid. IMPRESSION: 1. There is a 4 mm noncalcified nodule in the posterior base of the right lower lobe unchanged from the previous CT about 3 weeks ago. I would correlate this with the patient's smoking history, if the patient is not a cigarette smoker then the chances of this representing a very tiny early neoplasm are very remote. 2. Nonetheless, I do recommend a follow-up chest CT with attention to this tiny nodule in the right lower lobe in 1 year just to confirm it remains stable in size 3 prominent enlargement of the liver, mild fatty infiltration. 4. Moderately prominent cardiomegaly and left coronary artery calcification 5: Study otherwise normal, see above, and there is very mild early DJD in the right hip
--- NOTE | 2025-02-07 07:36 | EKG_ITS ---
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
[2025-02-07 07:45] VITALS: BP 144/89; PULSE 79; RESP 18; TEMP 37.1; O2SAT 96
--- NOTE | 2025-02-07 07:46 | EDNOTE_ITS ---
ED Abdominal Pain RME/HPI General Chief Complaint: Abdominal Pain Stated complaint: ABDOMINAL PAIN NO BM SINCE YESTERDAY Time seen by provider: 02/07/25 07:32 Arrival date/time: 02/07/25 07:29 RME / HPI RME / HPI narrative: 54-year-old female with past medical history of diabetes, appendectomy, cholecystectomy, who was told by her doctor that she might have cancer after a stool test presents to the ER complaining of nausea and diarrhea which began yesterday in the afternoon. Patient was scheduled for a GI appointment today however her pain was so bad that she came to the ER. Patient states she had antibiotics in the past 6 months but is unsure what kind. Denies any blood in her stool. Related Data Previous Rx's ?Medication ?Instructions ?Recorded ibuprofen 600 mg tablet 600 mg PO Q8H PRN fever or p ain 05/28/19 #30 tabs albuterol sulfate 90 mcg/actuation 2 puff inhalation Q ID PRN 04/03/20 aerosol inhaler shortness of breath or wheez ing #18 grams azithromycin 250 mg tablet See Rx Instructions PO .COM PLEX #6 04/03/20 tabs codeine 10 mg-guaifenesin 100 mg/5 5 ml PO Q6H PRN cou gh #118 mL 04/13/20 mL oral liquid (Guaifenesin AC) naproxen 500 mg tablet (Naprosyn) 500 mg PO BID PRN pa in #20 tabs 09/28/20 cyclobenzaprine 10 mg tablet 10 mg PO BID #20 tabs 09/17 ibuprofen 600 mg tablet 600 mg PO TID PRN pain #30 t abs 12/03/21 cephalexin 500 mg capsule 500 mg PO QID #28 caps 08/17 albuterol sulfate 90 mcg/actuation 90 mcg inhalation Q 6H PRN 06/22/23 breath activated powder shortness of breath #1 ea inhaler,sensor (Proair Digihaler) amoxicillin 875 mg-potassium 1 tab PO BID #14 tabs clavulanate 125 mg tablet doxycycline monohydrate 100 mg 100 mg PO BID #14 caps 06/22/23 capsule ibuprofen 800 mg tablet 800 mg PO TID PRN pain #30 t abs 05/25/24 acetaminophen 300 mg-codeine 30 mg 2 tab PO Q8H PRN pa in #20 tabs 12/30/24 tablet sitagliptin phosphate 50 1 tab PO DAILY #30 tabs 11/0 /25 mg-metformin 1,000 mg tablet (Janumet) ondansetron 4 mg disintegrating 4 mg PO Q8H PRN nausea and 02/07/25 tablet vomiting #12 tabs ondansetron 4 mg disintegrating 4 mg PO Q8H PRN nausea and 02/07/25 tablet vomiting #12 tabs pantoprazole 40 mg tablet,delayed 40 mg PO QDAY #30 ta bs 02/07/25 release (Protonix) Allergies Allergy/AdvReac Type Severity Reaction Status Date / Time No Known Allergies Allergy Verified 02/07/25 07:30 ED Exam Narrative Physical exam: Constitutional: Patient alert and oriented. Well appearing. No acute distress. Not toxic appearing. Head: Normocephalic, atraumatic. Eyes: Periorbital regions bilaterally normal to inspection. Conjunctiva clear bilaterally. Sclera anicteric bilaterally. Pupils equal, round, reactive to light bilaterally. Extraocular movements intact bilaterally. Mouth/Throat: Mucous membranes moist. No stridor or muffled voice. No trismus. Handling secretions without difficulty. Airway widely patent. Neck: Supple. Trachea midline. No JVD. No nuchal rigidity. Normal range of motion. Respiratory: Normal effort. No accessory muscle use or respiratory distress. Lungs clear to auscultation bilaterally without rhonchi, wheezes, or crackles. Cardiovascular: RRR. Normal S1/S2. No murmurs or rubs. Radial pulses intact bilaterally. Abdomen: Soft. Non-distended. Positive periumbilical tenderness. No pulsatile mass. No guarding or rebound. Negative Fisher?s sign. Negative McBurney?s point tenderness. Negative Rovsing?s. Back: No midline tenderness or step-offs. No CVA tenderness to palpation bilaterally. Upper Extremities: No gross deformities. Lower Extremities: No gross deformities. No edema or calf tenderness. Neuro: Speech normal. No gross motor or sensory deficits to upper or lower extremities bilaterally. GCS 15. CN II?XII grossly intact. Skin: Warm, dry, normal color. Psych: Normal affect. Cooperative. Normal insight. Course Quality Measures none Orders Category Date Time Status EKG (ED ONLY) *Do not use* NOW Care 02/07/25 07:37 Completed Insert IV NOW Care 02/07/25 16:17 Active NPO NOW Care 02/07/25 07:36 Active Diet NPO (NOW) Diet 02/07/25 07:[address] abdomen pelvis wo con Stat Exams 02/07/25 07:36 Completed EKG (ED Only) Stat Exams 02/07/25 07:36 Draft XR chest 1V Stat Exams 02/07/25 07:48 Completed CBC Stat Lab 02/07/25 08:10 Completed CMP [Comprehensive Metabolic Panel] Stat Lab 02/07/25 08:10 Completed HCG,Qualitative Serum Stat Lab 02/07/25 08:10 Completed Lipase Stat Lab 02/07/25 08:10 Completed Troponin I Stat Lab 02/07/25 08:10 Completed Urinalysis Stat Lab 02/07/25 08:30 Completed Urine Culture Stat Lab 02/07/25 08:30 Received c diff [Clostridium Difficile PCR] Stat Lab 02/07/25 17:00 Ordered Ketorolac Inj [Toradol Inj] Med 02/07/25 07:36 Discontinued 30 mg IM X1 ONE Lidocaine 2% Viscous [Xylocaine 2% Viscous] Med 02/07/25 13:10 Discontinued 15 ml PO X1 ONE Morphine* Inj Med 02/07/25 16:13 Discontinued 4 mg IVP X1 ONE Ondansetron Inj [Zofran Inj] Med 02/07/25 16:13 Discontinued 4 mg IVP X1 ONE Ondansetron Odt [Zofran Odt] Med 02/07/25 07:36 Discontinued 4 mg PO X1 ONE Ondansetron Odt [Zofran Odt] Med 02/07/25 13:21 Discontinued 4 mg PO X1 ONE Sodium Chloride 0.9% 1000 ml [Ns] 1,000 ml Med 02/07/25 16:14 Discontinued IV 999 mls/hr mg Hyd/Al Hyd/Jonatan Susp [Maalox Susp] Med 02/07/25 13:10 Discontinued 30 ml PO X1 ONE Reevaluation(s) Reevaluation #1: At the time of reassessment prior to discharge, the patient remains alert and oriented ?3 with GCS 15. Vitals are normal, pain is controlled, and the patient is tolerating oral intake without nausea or vomiting. The patient is agreeable to discharge and verbalizes understanding of the diagnosis, studies, treatment plan, medications (including side effects/precautions), and strict ER return precautions as discussed in the ED. All concerns were addressed, and the patient is comfortable with the plan. Time: 13:20 Reevaluation #2: Prior to nursing staff being able to discharge patient patient remained tearful in the ER and going back and forth to the restroom having diarrhea episodes as well as nausea after my reassessment with her patient states that she still remains in pain I plan to offer her fluids, pain and nausea management as needed with an additional p.o. challenge after this. Abdominal exam remains benign without peritonitis. Time: 16:20 Reevaluation #3: Serial abdominal exams benign without peritonitis and now patient remains without abdominal tenderness and tolerating p.o. without difficulty, I offered patient admission however she states that her pain is improved and would prefer to go home. At the time of reassessment prior to discharge, the patient remains alert and oriented ?3 with GCS 15. Vitals are normal, pain is controlled, and the patient is tolerating oral intake without nausea or vomiting. The patient is agreeable to discharge and verbalizes understanding of the diagnosis, studies, treatment plan, medications (including side effects/precautions), and strict ER return precautions as discussed in the ED. All concerns were addressed, and the patient is comfortable with the plan. Vital Signs Vital signs: Vital Signs Temperature 98.8 F 02/07/25 07:45 Pulse Rate 79 02/07/25 07:45 Respiratory Rate 18 02/07/25 07:45 Blood Pressure 144/89 H 02/07/25 07:45 Pulse Oximetry (%) 96 02/07/25 07:45 Oxygen Delivery Method Room Air 02/07/25 07:45 PROCEDURES: EKG Interpretation #1: Date of EK02/07/25 Time of EK:49 Rate: 75 Interpretation: Interpreted by me Additional EKG comment: Nonspecific ST abnormalities in the inferior lateral leads which were noted on prior EKG on 01/13 and without acute changes, no ST elevation, QTc 437 Abdominal Pain MDM MDM Narrative MDM Narrative:: MDM: The patient presents with abdominal pain without definite explanation found on evaluation today. However, there are no signs of peritonitis or other life- threatening or serious etiology. I considered admission; however, given negative work up and imaging, admission is not indicated. Serial abdominal exams were benign throughout the ED stay, and the patient tolerated oral intake without difficulty. The inherent uncertainty with undifferentiated abdominal pain was emphasized, and strict return precautions were provided. Patient additionally educated that she may have a very early or mild pancreatitis or gastritis and this cannot be excluded and necessity to perform a clear liquid diet and advance as tolerated as well as strict ER return precautions advised. Patient will be given supportive treatment as well as PPIs and patient advised that she does need to see a GI doctor this week as well. The patient has been instructed that this presentation could represent an early acute abdominal process. The plan is for mandatory re-evaluation within 24 hours and immediate return for worsening, persistence, or change in symptoms. The patient may follow up with their primary care provider or return to the ED as appropriate. The patient appears stable for discharge at this time. Patient data External records reviewed:: [facility] previous records Clinical information provided by:: patient Social determinants that could affect healthcare access:: housing Patient has the following chronic illnesses:: As noted How is presenting disease/condition affected by chronic disease/condition?: exacerbated by Evaluation data The following diagnostics were reviewed and interpreted by me:: other (specify) Lab and/or radiology exams considered but not ordered:: Additional Labs and radiology considered, but not ordered as they were not clinically indicated at this time. Interpretation Summary: Lab work notable for a normal WBC of 7.6 and immature granulocyte minimally elevated 0.03 thousand, glucose moderately elevated at 289 with a normal CO2 of 24.3 and a normal anion gap of 11 additionally AST and ALT are both minimally elevated at 49 and 52 respectively, troponin undetectable at less than 0.002, lipase minimally elevated 116 however alk phos and total bilirubin both within normal limits overall doubt DKA and doubt acute hepatobiliary obstruction and lipase although minimally elevated at 112 patient does not have specific epigastric tenderness rather her tenderness is periumbilical in nature however I cannot exclude early, mild pancreatitis which is safe for outpatient follow-up patient is able to tolerate p.o. without difficulty without significant pain Urine notes for RBCs, 5 WBCs and rare bacteria with only 1 squamous cell and cannot exclude early UTI however no nitrites after discussion of risk and benefits with patient who declined treatment which is reasonable as she has no dysuria, burning with urination, frequency, tingling or any urinary symptoms. Urine culture pending at this time Chest x-ray without acute cardiopulmonary abnormality CT scan notes incidental vertebral hemangioma which is a benign bony lesion, prominent fatty liver, prominent cardiomegaly, CAD, pulmonary nodule all of which are incidental in nature and there is no acute intra-abdominal or pelvic abnormality and do not explain patient's pain and pancreas remains unremarkable Medications / Prescriptions Medications or Prescriptions considered but not ordered:: I ordered medications based on the patient?s clinical needs and assessment, as documented in the chart. For medications not prescribed, they were not indicated for the patient's current condition, and I determined they were unnecessary at this time to avoid potential risks or complications. Medication administrations:: Medication Administration History Discontinued Medications Al Hydrox/Mg Hydrox/Simethicone (Mg Hyd/Al Hyd/Jonatan (Maalox Reg) Susp 30 Ml Udc) 30 ml PO X1 ONE Stop: 02/07/25 13:11 Last Admin: 02/07/25 15:10 Dose: 30 ml Documented By: Sodium Chloride (Ns) 1,000 mls @ 999 mls/hr IV .Q1H1M ONE Stop: 02/07/25 17:14 Last Admin: 02/07/25 16:26 Dose: 999 mls/hr Documented By: BD Ketorolac Tromethamine (Ketorolac Inj 60 Mg/2 Ml Vial) 30 mg IM X1 ONE Stop: 02/07/25 07:37 Last Admin: 02/07/25 08:02 Dose: 30 mg Documented By: ER Lidocaine HCl (Lidocaine Viscous 2% 15 Ml Udc) 15 ml PO X1 ONE Stop: 02/07/25 13:11 Last Admin: 02/07/25 15:10 Dose: 15 ml Documented By: Morphine Sulfate (Morphine Sulf Inj 4 Mg/Ml Vial) 4 mg IVP X1 ONE Stop: 02/07/25 16:14 Last Admin: 02/07/25 16:26 Dose: 4 mg Documented By: BD Ondansetron HCl (Ondansetron Odt 4 Mg Tabrap) 4 mg PO X1 ONE; Protocol Stop: 02/07/25 07:37 Last Admin: 02/07/25 08:03 Dose: 4 mg Documented By: ER Ondansetron HCl (Ondansetron Odt 4 Mg Tabrap) 4 mg PO X1 ONE; Protocol Stop: 02/07/25 13:22 Last Admin: 02/07/25 15:10 Dose: 4 mg Documented By: Ondansetron HCl (Ondansetron Inj 2 Mg/Ml Inj 2 Ml) 4 mg IVP X1 ONE; Protocol Stop: 02/07/25 16:14 Last Admin: 02/07/25 16:26 Dose: 4 mg Documented By: BD As noted Consultations Consultation(s) initiated? (list below): No Consultation #1 (Physician, Specialty, Details): Dr. Diaz, Case and plan discussed with and agreed upon patient safe for discharge Time: 05:30 Diagnosis Differential diagnosis abdominal pain: abdominal pain, constipation, gastroenteritis and pancreatitis Most likely diagnosis given after review of the tests above:: Abdominal pain of unclear etiology however cannot exclude acute or early mild pancreatitis versus gastritis Admission Indicated Admission indicated?: not indicated Explain why admission is indicated or not indicated:: Escalation of care including admission/observation considered but I decided to discharge because based on the overall clinical presentation, and after consideration of the patient's course in the emergency department and plan for outpatient management, I believe that neither further observation nor inpatient care is required at this time. Admission Request Was there a request for admission?: No Disposition Plan Disposition Plan: Discharge Discharge Attestation Discharge Attestation: The patient and all family members were given an opportunity to ask questions and understood the discharge instructions. Discharge instructions specifically effects, indications for sooner follow up or return to the emergency department, and the expected course of current diagnosis. Patient condition: Stable Discharge Plan Plan Patient Disposition: HOME (Self Care) Patient condition on transfer: Stable Prescriptions/Referrals Prescriptions/Med Rec: New ondansetron 4 mg tablet,disintegrating 4 mg PO Q8H PRN (Reason: nausea and vomiting) Qty: 12 0RF Rx Instructions: 1-2 tabs PO Q8Hr prn nausea or vomit ondansetron 4 mg tablet,disintegrating 4 mg PO Q8H PRN (Reason: nausea and vomiting) Qty: 12 0RF Rx Instructions: 1-2 tabs PO Q8Hr prn nausea or vomit pantoprazole [Protonix] 40 mg tablet,delayed release (DR/EC) 40 mg PO QDAY Qty: 30 0RF No Action ibuprofen 600 mg tablet 600 mg PO Q8H PRN (Reason: fever or pain) Qty: 30 0RF codeine-guaifenesin [Guaifenesin AC] 10-100 mg/5 mL liquid 5 ml PO Q6H PRN (Reason: cough) Qty: 118 0RF azithromycin 250 mg tablet See Rx Instructions .ROUTE .COMPLEX Qty: 6 0RF Rx Instructions: take 500 mg today (day 1), then 250 mg for 4 days (days 2-5) albuterol sulfate 90 mcg/actuation HFA aerosol inhaler 2 puff inhalation QID PRN (Reason: shortness of breath or wheezing) Qty: 18 0RF naproxen [Naprosyn] 500 mg tablet 500 mg PO BID PRN (Reason: pain) Qty: 20 0RF cyclobenzaprine 10 mg tablet 10 mg PO BID Qty: 20 0RF ibuprofen 600 mg tablet 600 mg PO TID PRN (Reason: pain) Qty: 30 0RF amoxicillin-pot clavulanate 875-125 mg tablet 1 tab PO BID Qty: 14 0RF doxycycline monohydrate 100 mg capsule 100 mg PO BID Qty: 14 0RF Proair Digihaler 90 mcg/actuation aero powdr breath act w/sensor 90 mcg inhalation Q6H PRN (Reason: shortness of breath) Qty: 1 0RF acetaminophen-codeine 300-30 mg tablet 2 tab PO Q8H MDD 6 PRN (Reason: pain) Qty: 20 0RF Janumet 50-1,000 mg tablet 1 tab PO DAILY Qty: 30 1RF cephalexin 500 mg capsule 500 mg PO QID Qty: 28 0RF ibuprofen 800 mg tablet 800 mg PO TID PRN (Reason: pain) Qty: 30 0RF Referrals: [facility] [Provider Group] - In 1 week Ashwin Montes MD [Physician, Gastroenterology] - In 1 week No Primary/Family,Physician [Primary Care Provider] - In 1 week Problem List Clinical Impression: Abdominal pain, Abnormal CT of the abdomen Patient/Caregiver Discharge Instructions Education Materials: ED Pain, Acute, Uncertain Cause, ED Pancreatitis Additional Instructions: Follow up with your primary medical doctor and a GI doctor within 24-48 hours. Return to the Emergency Room immediately for any new, worsening, continuing symptoms or any concerns at all. Return to the Emergency Room within 48 hours if you are unable to follow up with your primary medical doctor and a GI doctor 24-48 hours. Perform a clear liquid diet and advance as tolerated. You may have a very early pancreatitis do not drink any alcohol. Print Language: Greek Stand Alone Forms: Dominique Award Info., Patient Portal Info Letter PA/SHARE DAIRY FARMER Supervising Physician PA/SHARE DAIRY FARMER Supervising Physician: Dr. Diaz
--- NOTE | 2025-02-07 07:48 | XR_ITS ---
EXAMINATION: PA chest single view TECHNIQUE: Upright PA chest single view Date and time: February 07, 2025, 0753 hours, comparison December 30, 2024 INDICATIONS: Abdominal pain chest pain no bowel movement since yesterday FINDINGS: Normal heart size Lungs are clear. Intact osseous structures IMPRESSION: No active disease
[2025-02-07] MEDS: KETOROLAC INJ 60 MG/2 ML VIAL 30 MG IM (08:02)
[2025-02-07] MEDS: ONDANSETRON ODT 4 MG TABRAP PO ×2 (08:03→15:10)
[2025-02-07 08:18] LABS: Basophils # (Auto) 0.0 Thou/mm3 (0.0-0.2); Basophils % (Auto) 0 % (0-2.5); Eosinophils # (Auto) 0.1 Thou/mm3 (0.0-0.5); Eosinophils % (Auto) 1 % (0-10); Hematocrit 38.7 % (36.0-46.0); Hemoglobin 13.1 g/dL (12.0-16.0); Immature Granulocytes Auto 0.03 Thou/mm3 (0.00-0.00); Lymphocytes # (Auto) 1.8 Thou/mm3 (1.0-4.8); Lymphocytes % (Auto) 23 % (10-50); Mean Corpuscular HGB Conc 33.9 g/dl (31.0-37.0); Mean Corpuscular Hemoglobin 28.4 pg (25.0-35.0); Mean Corpuscular Volume 84 fL (80-100); Monocytes # (Auto) 0.3 Thou/mm3 (0.0-0.8); Monocytes % (Auto) 4 % (0-12); Neutrophils # (Auto) 5.5 Thou/mm3 (1.8-7.7); Neutrophils % (Auto) 72 % (37-80); Nucleated Red Blood Cell # 0.00 Thou/mm3 (0.00-0.00); Nucleated Red Blood Cell % 0 /100 WBC (0); Platelet Count 214 Thou/mm3 (140-440); RDW Standard Deviation 38.2 fL (36.4-46.3); Red Blood Count 4.61 Miln/mm3 (4.00-5.20); White Blood Count 7.6 Thou/mm3 (3.6-11.0)
[2025-02-07 08:36] LABS: HCG,Qualitative Serum Negative
[2025-02-07 08:42] LABS: Alanine Aminotransferase 52 U/L (10-49); Albumin, Serum 4.5 gm/dL (3.5-5.0); Albumin/Globulin Ratio 1.4 (1.2-2.2); Alkaline Phosphatase 112 U/L (46-116); Anion Gap 11 (7-16); Aspartate Amino Transferase 49 U/L (0-34); BUN/Creatinine Ratio 17 Ratio (12-20); Bilirubin,Total 0.4 mg/dL (0.3-1.2); Blood Urea Nitrogen 12 mg/dL (9-23); Calcium 9.4 mg/dL (8.3-10.6); Calcium (Corrected) 9.4 mg/dL (8.5-10.1); Carbon Dioxide 24.3 mMol/L (20.0-31.0); Chloride 104 mMol/L (98-107); Creatinine (Component) 0.7 mg/dL (0.6-1.3); Globulin 3.3 gm/dL (2.3-3.5); Glucose 289 mg/dL (74-106); Lipase 116 U/L (12-53); Osmolality,Calculated 288 (275-295); Potassium 4.0 mMol/L (3.4-5.1); Sodium 139 mMol/L (136-145); Total Protein 7.8 gm/dL (5.7-8.2); Troponin I < 0.002 ng/mL (0.0-0.045); eGFR > 60 See Note
[2025-02-07 08:57] LABS: Collection Type, Urine Voided
[2025-02-07 09:22] LABS: Bacteria,Urine Rare; Bilirubin,Urine Negative (Negative); Blood,Urine Negative (Negative); Clarity,Urine Clear (Clear/Hazy); Color,Urine Lt-Yellow (Lt Yel-Yel); Glucose, Urine 3+ (Negative); Ketones,Urine Negative (Negative); Leukocyte Esterase,Urine Negative (Negative); Nitrite,Urine Negative (Negative); PH,Urine 6.0 (5.0-7.0); Protein,Urine Trace (Neg - Trace); RBC,Urine 4 /hpf (0-3); Specific Gravity,Urine 1.026 (1.001-1.035); Squamous Epithelial Cell,Urine 1 /hpf (0-5); Urobilinogen,Urine Negative mg/dL (0.0-1.0); WBC,Urine 5 /hpf (0-5)
[2025-02-07 12:46] VITALS: BP 130/81; PULSE 71; RESP 16; TEMP 36.9; O2SAT 98
[2025-02-07] MEDS: MG HYD/AL HYD/SIME (Maalox Reg) SUSP 30 ML UDC PO (15:10)
[2025-02-07] MEDS: LIDOCAINE VISCOUS 2% 15 ML UDC PO (15:10)
[2025-02-07] MEDS: SODIUM CHLORIDE 0.9% 1000 ML 1,000 ML 999 ML IV (16:26)
[2025-02-07] MEDS: MORPHINE SULF INJ 4 MG/ML VIAL IVP (16:26)
[2025-02-07] MEDS: ONDANSETRON INJ 2 MG/ML INJ 2 ML 4 MG IVP (16:26)
== END 2025-02-07 18:12 | disposition home or self-care (01) ==
PROVIDERS: Emergency Provider Physician Assistant
DX: R94.8 Abnormal results of function studies of other organs and systems (principal); R10.9 Unspecified abdominal pain; R07.9 Chest pain, unspecified
CPT/HCPCS: 36415; 71045; 74176; 80053; 81001; 83690; 84484; 84703; 85025; 87086; 87493; 93005; 96361; 96372; 96374; 96375; 99284; J1885; J2270; J2405; J3490; J7030; Q0162; A9270